=== PATIENT | male | born 1965 | race Asian ===

== ENCOUNTER 2017-01-30 19:48 | Emergency (ER) | payer BC ==
[~2017-01-30] VITALS: Ht 167.6 cm; Wt 74.8 kg
[~2017-01-30 19:48] MED LIST: BACTRIM-DS1 EA ORAL; INDOMETHACIN75 MG ORAL; NORCO 5-325 TA1 EACH ORAL
[2017-01-30 20:25] VITALS: BP 152/90
[2017-01-30] MEDS ORDERED: PredniSONE 20mg tab ONE (20:26)
[2017-01-30] MEDS ORDERED: HYDROCODON-ACE1 EA15 ORAL (20:29)
[2017-01-30] MEDS ORDERED: INDOMETHACIN50 MG PO (20:29)
[2017-01-30] MEDS ORDERED: PREDNISONE20 MG ORAL (20:29)
[2017-01-30 20:30] VITALS: BP 152/90
[2017-01-30] MEDS ORDERED: PredniSONE 20mg tab ORAL ONE (20:30)
--- NOTE | 2017-01-30 20:30 | Emergency Room Report ---
History of Present Illness General Chief Complaint: Pain Source: Patient Present Illness HPI Is a 51-year-old Vietnamese gentleman with history of gout. He's been complaining of right knee pain and swelling for the last 2 weeks. His Indocin helped some but still painful. No trauma. No fever or chills. No nausea vomiting. Pain is 7/10. Worse with walking. Similar to previous gouty attack. No other complaint. Allergies: Coded Allergies: AMOXICILLIN (Verified Allergy, Unknown, 06/05/16) Patient History Past Medical History: see triage record, old chart reviewed Past Surgical History: other Pertinent Family History: none Social History: Denies: smoking Immunizations: other Reviewed Nursing Documentation: PMH: Agreed, PSxH: Agreed Review of Systems Eye: Denies: blurred vision, eye pain ENT: Denies: ear pain, nose congestion, throat swelling Respiratory: Denies: cough, shortness of breath Cardiovascular: Denies: chest pain, palpitations Gastrointestinal: Denies: abdominal pain, diarrhea, nausea, vomiting Musculoskeletal: Reports: joint pain, Denies: back pain Skin: Denies: rash Neurological: Denies: headache, numbness Endocrine: Denies: increased thirst, increased urine Hematologic/Lymphatic: Denies: easy bruising All Other Systems: negative except mentioned in HPI Physical Exam Vital Signs Date Time Temp Pulse Resp B/P Pulse Ox O2 Delivery O2 Flow Rate FiO2 01/30/17 20:00 98.8 97 16 152/90 96 Room Air vitals with hypertension Sp02 EP Interpretation: reviewed, normal General Appearance: well appearing, no apparent distress, alert Head: normocephalic, atraumatic Eyes: bilateral eye EOMI, bilateral eye PERRL ENT: hearing grossly normal, normal pharynx Neck: full range of motion, supple, no meningismus Respiratory: chest non-tender, lungs clear, normal breath sounds Cardiovascular #1: regular rate, rhythm, no murmur Gastrointestinal: normal bowel sounds, non tender, no mass, no organomegaly, no bruit, non-distended Musculoskeletal: back normal, gait/station normal, normal range of motion, other - rt knee with mild edema and warmth. FROM. N[facility] Psychiatric: mood/affect normal Skin: warm/dry Medical Decision Making Diagnostic Impression: Primary Impression: Gout of right knee Qualified Codes: M10.9 - Gout, unspecified ER Course Patient presents with right knee pain. Most likely from gout. No evidence of any septic joint. No evidence of trauma. We'll discharge home. Last Vital Signs Date Time Temp Pulse Resp B/P Pulse Ox O2 Delivery O2 Flow Rate FiO2 01/30/17 20:00 98.8 97 16 152/90 96 Room Air Status: improved Disposition: HOME, SELF-CARE Condition: Stable Scripts Indomethacin (INDOMETHACIN) 50 Mg Capsule 50 MG PO TID, #30 CAP Prov: JAZ VELOZ M.D. 01/30/17 Prednisone* (PREDNISONE*) 20 Mg Tablet 40 MG ORAL DAILY, #8 TAB Prov: JAZ VELOZ M.D. 01/30/17 Hydrocodone/Acetaminophen 5-325* (HYDROCODONE/ACETAMINOPHEN 5-325*) 1 Each Tablet 1 TAB ORAL Q6H Y for For Pain, #20 TAB 0 Refills Prov: JAZ VELOZ M.D. 01/30/17 Additional Instructions: Followup with your Dr. in 7 days. Return if symptom worsen. JAZ VELOZ M.D. January 30, 2017 20:30
== END 2017-01-30 20:30 | disposition home or self-care (01) ==
LOC: EMR 19:55
DX: M10.9 Gout, unspecified (principal); Z88.8 Allergy status to other drugs, medicaments and biological substances
CPT/HCPCS: 99283

== ENCOUNTER 2017-04-23 19:31 | Emergency (ER) | payer BC ==
[~2017-04-23] VITALS: Ht 167.6 cm; Wt 74.8 kg
[~2017-04-23 19:31] MED LIST changes: +HYDROCODON-ACE1 EA15 ORAL; +INDOMETHACIN50 MG PO; +PREDNISONE20 MG ORAL
[2017-04-23 20:07] LABS: APPEARANCE,URINE SLIGHTLY CLOUDY; KETONES,URINE NEGATIVE (NEGATIVE); LEUKOCYTE ESTERASE ,URINE 1+ (NEGATIVE); NITRITE,URINE NEGATIVE (NEGATIVE); PH,URINE 7 (4.5-8.0); PROTEIN,URINE 2+ (NEGATIVE); UROBILINOGEN,URINE NORMAL MG/DL (0.0-1.0)
[2017-04-23 20:50] LABS: BACTERIA,URINE FEW /HPF
[2017-04-23 20:53] LABS: BASOPHILS % (AUTO) 0.9 % (0.0-2.0); EOSINOPHILS % (AUTO) 1.1 % (0.0-3.0); LYMPHOCYTES % (AUTO) 15.4 % (20.0-45.0); MEAN CORPUSCULAR HEMOGLOBIN 30.2 PG (27.0-31.0); MEAN CORPUSCULAR HGB CONC 34.8 G/DL (32.0-36.0); MEAN CORPUSCULAR VOLUME 87 FL (80-99); MEAN PLATELET VOLUME 5.9 FL (6.5-10.1); MONOCYTES % (AUTO) 8.7 % (1.0-10.0); NEUTROPHILS % (AUTO) 73.9 % (45.0-75.0); PLATELET COUNT 315 K/UL (150-450); RED BLOOD COUNT 5.06 M/UL (4.70-6.10); RED CELL DISTRIBUTION WIDTH 12.3 % (11.6-14.8); WHITE BLOOD COUNT 13.6 K/UL (4.8-10.8)
[2017-04-23 21:09] LABS: ALBUMIN/GLOBULIN RATIO 1.6 (1.0-2.7); ANION GAP 11 (5-15); CALCIUM 9.6 mg/dL (8.6-10.2); CARBON DIOXIDE 30 mEQ/L (20-30); CHLORIDE 101 mEQ/L (98-107); CREATININE 1.1 mg/dL (0.7-1.2); GLOMERULAR FILTRATION RATE > 60 mL/min (>60); HEMOLYSIS 24; POTASSIUM 3.9 mEQ/L (3.4-4.9); SODIUM 142 mEQ/L (135-145); TOTAL PROTEIN 7.8 g/dL (6.6-8.7)
[2017-04-23 21:20] LABS: ALANINE AMINOTRANSFERASE 5 U/L (3-41); ASPARTATE AMINO TRANSFERASE < 5 U/L (5-40)
[2017-04-23] MEDS ORDERED: NORCO 5-325 TA1 EAC1 ORAL (22:05)
[2017-04-23] MEDS ORDERED: CEPHALEXIN500 MG ORAL (22:05)
[2017-04-23 22:30] VITALS: BP 139/89
[2017-04-23 22:45] VITALS: BP 148/90
--- NOTE | 2017-04-24 11:53 | Emergency Room Report ---
History of Present Illness General Chief Complaint: Abdominal Pain Source: Patient Present Illness HPI The patient is a 51-year-old male presenting for Increased urinary frequency, dysuria, and left back pain. Symptoms began 2 days prior. He states that he has had both the UTI and kidney stone in the past. He also has a history of gout. Pain is a 5/10 intermittent sharp sensation from the left lower back to the left lower abdomen. He is also described as sharp pain in the penis while urinating which then resolved. He denies any penile discharge, testicular pain , nausea, vomiting, fever, chills, hematuria, rash Allergies: Coded Allergies: AMOXICILLIN (Verified Allergy, Unknown, 06/05/16) Patient History Past Medical History: see triage record Pertinent Family History: none Reviewed Nursing Documentation: PMH: Agreed, PSxH: Agreed Nursing Documentation-PMH Past Medical History: No History, Except For Review of Systems All Other Systems: negative except mentioned in HPI Physical Exam Vital Signs Date Time Temp Pulse Resp B/P Pulse Ox O2 Delivery O2 Flow Rate FiO2 04/23/17 19:42 97.9 100 16 148/90 99 Room Air Sp02 EP Interpretation: reviewed, normal General Appearance: no apparent distress, alert, GCS 15, non-toxic Head: normocephalic, atraumatic Eyes: bilateral eye PERRL, bilateral eye normal inspection ENT: hearing grossly normal, normal pharynx, no angioedema, normal voice Neck: full range of motion, supple/symm/no masses Respiratory: chest non-tender, lungs clear, normal breath sounds, speaking full sentences Cardiovascular #1: regular rate, rhythm, no edema Gastrointestinal: normal bowel sounds, non tender, soft, no mass, non-distended , no guarding, no rebound Genitourinary: normal inspection, no CVA tenderness Musculoskeletal: back normal, gait/station normal, normal range of motion, non- tender Neurologic: alert, oriented x3, responsive, motor strength/tone normal, sensory intact, speech normal Psychiatric: judgement/insight normal, memory normal, mood/affect normal, no suicidal/homicidal ideation Skin: normal color, no rash, warm/dry, well hydrated Medical Decision Making PA Attestation Dr. Dunham is my supervising physician. Patient management was discussed with my supervising physician Diagnostic Impression: Primary Impression: Renal calculus, bilateral Additional Impressions: Urinary tract infection Qualified Codes: N39.0 - Urinary tract infection, site not specified; R31.9 - Hematuria, unspecified Hematuria Qualified Codes: R31.9 - Hematuria, unspecified ER Course The patient is a 51-year-old male presenting for increased urinary frequency and flank pain. Differential diagnoses considered but not limited to: Urinary tract infection, pyelonephritis, pyelonephrosis, muscle strain, appendicitis,, and others Physical exam: Afebrile. No apparent distress Abdomen is soft and nontender. Normal bowel sounds. No CVA tenderness. Lungs are clear to auscultation bilaterally Skin is warm and dry. No discoloration Otherwise exam is unremarkable CBC shows leukocytosis, otherwise unremarkable CMP unremarkable Urinalysis shows 5+ occult blood with red blood cells and 1+ leukocyte Estrace The patient has declined CT of the abdomen as he states he has had 2 in the past and does not want anymore radiation Abdominal ultrasound shows cholelithiasis and nonobstructing kidney stones. No hydronephrosis The patient be placed on antibiotics and is given pain medications. He was informed of the results and needs to followup with his primary doctor. ER precautions given Labs Test 04/23/17 19:49 04/23/17 20:25 Urine Color Pale yellow Urine Appearance Slightly cloudy Urine pH 7 (4.5-8.0) Urine Specific [place] 1.010 (1.005-1.035) Urine Protein 2+ (NEGATIVE) Urine Glucose (UA) Negative (NEGATIVE) Urine Ketones Negative (NEGATIVE) Urine Occult Blood 5+ (NEGATIVE) Urine Nitrite Negative (NEGATIVE) Urine Bilirubin Negative (NEGATIVE) Urine Urobilinogen Normal MG/DL (0.0-1.0) Urine Leukocyte Esterase 1+ (NEGATIVE) Urine RBC 10-15 /HPF (0 - 0) Urine WBC 2-4 /HPF (0 - 0) Urine Squamous Epithelial Cells None /LPF (NONE/OCC) Urine Bacteria Few /HPF (NONE) White Blood Count 13.6 K/UL (4.8-10.8) Red Blood Count 5.06 M/UL (4.70-6.10) Hemoglobin 15.3 G/DL (14.2-18.0) Hematocrit 43.9 % (42.0-52.0) Mean Corpuscular Volume 87 FL (80-99) Mean Corpuscular Hemoglobin 30.2 PG (27.0-31.0) Mean Corpuscular Hemoglobin Concent 34.8 G/DL (32.0-36.0) Red Cell Distribution Width 12.3 % (11.6-14.8) Platelet Count 315 K/UL (150-450) Mean Platelet Volume 5.9 FL (6.5-10.1) Neutrophils (%) (Auto) 73.9 % (45.0-75.0) Lymphocytes (%) (Auto) 15.4 % (20.0-45.0) Monocytes (%) (Auto) 8.7 % (1.0-10.0) Eosinophils (%) (Auto) 1.1 % (0.0-3.0) Basophils (%) (Auto) 0.9 % (0.0-2.0) Sodium Level 142 mEQ/L (135-145) Potassium Level 3.9 mEQ/L (3.4-4.9) Chloride Level 101 mEQ/L (98-107) Carbon Dioxide Level 30 mEQ/L (20-30) Anion Gap 11 (5-15) Blood Urea Nitrogen 14 mg/dL (7-23) Creatinine 1.1 mg/dL (0.7-1.2) Estimat Glomerular Filtration Rate > 60 mL/min (>60) Glucose Level 126 mg/dL (74-106) Uric Acid 9.9 MG/DL (2.6-7.2) Calcium Level 9.6 mg/dL (8.6-10.2) Total Bilirubin 0.3 mg/dL (0.0-1.2) Aspartate Amino Transf (AST/SGOT) < 5 U/L (5-40) Alanine Aminotransferase (ALT/SGPT) 5 U/L (3-41) Alkaline Phosphatase 87 U/L (40-129) Total Protein 7.8 g/dL (6.6-8.7) Albumin 4.8 g/dL (3.5-5.2) Globulin 3.0 g/dL Albumin/Globulin Ratio 1.6 (1.0-2.7) Lab Results Impression CBC shows leukocytosis, otherwise unremarkable CMP unremarkable Urinalysis shows 5+ occult blood with red blood cells and 1+ leukocyte Estrace CT/MRI/US Diagnostic Results CT/MRI/US Diagnostic Results : Imaging Test Ordered: [facility] US Impression Cholelithiasis. nonobstructive stones within the kidneys. Fatty liver Last Vital Signs Date Time Temp Pulse Resp B/P Pulse Ox O2 Delivery O2 Flow Rate FiO2 04/23/17 22:45 97.9 16 148/90 99 Room Air 04/23/17 22:30 88 Status: improved Disposition: HOME, SELF-CARE Condition: Improved Scripts Cephalexin* (KEFLEX*) 500 Mg Capsule 500 MG ORAL EVERY 12 HOURS, #14 CAP 0 Refills Prov: BARRETT CAI.A. 04/23/17 Hydrocodone Bit/Acetaminophen 5-325* (NORCO 5-325 TABLET*) 1 Each Tablet 1 TAB ORAL Q6HR Y for For Pain, #10 TAB Prov: BARRETT CAI.A. 04/23/17 Patient Instructions: Kidney Stones, Hematuria, Adult Additional Instructions: I discussed my findings with the patient. All questions and concerns have been answered. Treatment and medication compliance have been addressed. I advised the patient that they need to follow up with PMD in 3-5 days. Return to ED if symptoms worsen, new symptoms arise, or if needed for any reason. Patient verbalized understanding of discharge instructions. The patient was told to return to the ED if he experiences increased pain, blood in urine, fever, or for any reason. BARRETT CAI Apr 24, 2017 11:53
--- NOTE | 2017-04-24 12:12 | Diagnostic Imaging Report ---
Indication:Abdominal pain Technique: Grayscale and duplex Doppler imaging of the abdomen performed. Comparison: None Findings: The liver is echogenic consistent with fatty infiltration. Main portal vein is patent by Doppler examination. Gallstone noted. No biliary ductal dilatation is identified. The pancreas and aorta are not seen. There is no hydronephrosis. There is evidence of nonobstructive stones within both kidneys. Impression: Cholelithiasis. nonobstructive stones within the kidneys. Fatty liver
== END 2017-04-23 22:46 | disposition home or self-care (01) ==
LOC: EMR 20:01
DX: N20.0 Calculus of kidney (principal); N39.0 Urinary tract infection, site not specified; R31.9 Hematuria, unspecified; Z88.8 Allergy status to other drugs, medicaments and biological substances
CPT/HCPCS: 36415; 76700; 80053; 81003; 84550; 85025; 96374

== ENCOUNTER 2017-11-08 14:50 | Emergency (ER) | payer BC ==
[~2017-11-08] VITALS: Ht 165.1 cm; Wt 72.6 kg
[~2017-11-08 14:50] MED LIST changes: +CEPHALEXIN500 MG ORAL; +NORCO 5-325 TA1 EAC1 ORAL
--- NOTE | 2017-11-08 15:43 | Emergency Room Report ---
History of Present Illness General Chief Complaint: Pain Source: Patient Present Illness HPI 52 yo male patient presents to ER complaining of left knee pain x1 day. Patient reports pain with walking; able to ambulate independently into ER. Reports he drove to ER. Patient reports hx of gout. Patient denies healthy diet. Patient reports taking Indomethacin for relief of symptoms; reports last dosage at 1200. Patient denies use of colchicine secondary to GI upset with use. Denies recent hx of trauma. Reports hx of ACL surgery. States gout usually has previously occurred in knees. Patient denies fever, chest pain, SOB. Allergies: Coded Allergies: AMOXICILLIN (Verified Allergy, Unknown, 06/05/16) Patient History Past Medical History: see triage record Reviewed Nursing Documentation: PMH: Agreed, PSxH: Agreed Nursing Documentation-PMH Past Medical History: No History, Except For Review of Systems All Other Systems: negative except mentioned in HPI Physical Exam Vital Signs Date Time Temp Pulse Resp B/P (MAP) Pulse Ox O2 Delivery O2 Flow Rate FiO2 11/08/17 14:54 97.6 109 16 151/88 94 Room Air 97.5 Sp02 EP Interpretation: reviewed, normal General Appearance: well appearing, no apparent distress, alert, GCS 15, non- toxic Head: normocephalic, atraumatic Eyes: bilateral eye normal inspection, bilateral eye PERRL, bilateral eye EOMI ENT: hearing grossly normal, normal pharynx, normal voice, uvula midline, moist mucus membranes Neck: normal inspection, full range of motion, no bony tend Respiratory: normal inspection, lungs clear, normal breath sounds, no accessory muscle use, no wheezing, speaking full sentences Cardiovascular #1: regular rate, rhythm, no edema Musculoskeletal: back normal, digits/nails normal, gait/station normal, normal range of motion - with pain, non-tender, no calf tenderness, swelling, other - right knee: mild edema, warmth Neurologic: alert, oriented x3, responsive, motor strength/tone normal, normal gait Psychiatric: mood/affect normal Skin: no rash Lymphatic: no adenopathy Medical Decision Making PA Attestation Dr. Montoya is my supervising Physician whom patient management has been discussed with. Diagnostic Impression: Primary Impression: Gout ER Course Pt. presents to the ED c/o right foot pain. Ddx considered but are not limited to gout, sprain, strain, contusion. No evidence of septic joint, no TTP. Vital signs: are WNL, pt. is afebrile ORDERS: An X-ray of the left knee was ordered, results show joint effusion, per the official radiology report. No fracture. Results discussed with patient. ED INTERVENTIONS: -Indomethacin Patient request crutches for walking. Provided patient with crutches. DISCHARGE: -Rx provided for Indomethacin for pain symptoms. At this time pt. is stable for d/c to home. Patient resting comfortably, in no acute distress, nontoxic appearing. Will provide printed patient care instructions, and any necessary prescriptions. Patient instructed to follow with primary care provider in 3 - 5 days and to discuss further gout treatment. Care plan and follow up instructions have been discussed with the patient prior to discharge. Take medications as directed. Patient questions asked and answered. Patient reports understanding and agreement to treatment plan. ER precautions given, patient instructed to return to ER immediately for any new or worsening of symptoms. Other X-Ray Diagnostic Results Other X-Ray Diagnostic Results : X-Ray ordered: left knee # of Views/Limited Vs Complete: 3 View Indication: Pain EP Interpretation: Yes PA Xray: Interpretation reviewed, by supervising MD, and agrees with findings. Interpretation: no dislocation, no fractures, other - joint effusion, s/p ACL repair Impression: Other - joint effusion PA Scribe Text Juan Jones PA-C Last Vital Signs Date Time Temp Pulse Resp B/P (MAP) Pulse Ox O2 Delivery O2 Flow Rate FiO2 11/08/17 14:54 97.6 109 16 151/88 94 Room Air 97.5 Disposition: HOME, SELF-CARE Condition: Stable Scripts Indomethacin (INDOMETHACIN) 25 Mg Capsule 25 MG PO TID for 7 Days, #21 CAP Prov: Nathan Jones 11/08/17 Patient Instructions: Gout, [id number] Additional Instructions: Followup with primary care provider in 3 -5 days. Take medications as directed. Patient questions asked and answered. ER precautions given, patient instructed to return to ER immediately for any new or worsening of symptoms. Nathan Jones Nov 08, 2017 15:43
[2017-11-08] MEDS ORDERED: INDOMETHACIN25 MG PO (15:55)
[2017-11-08] MEDS ORDERED: Indomethacin 25mg cap ORAL SCH (16:00)
[2017-11-08] MEDS ORDERED: Norco 5mg/325mg tab ORAL ONE (16:00)
--- NOTE | 2017-11-08 16:14 | Diagnostic Imaging Report ---
Indication: Pain 3 views of the left knee were obtained. Findings: There is distention of the suprapatellar pouch consistent with a joint effusion. There are tracts in the distal femur and proximal tibia consistent with previous ACL repair. The bones are osteopenic. No fracture or malalignment of the knee identified. IMPRESSION: Joint effusion. Status post ACL repair
[2017-11-08 16:49] VITALS: BP 154/83
== END 2017-11-08 16:49 | disposition home or self-care (01) ==
LOC: EMR 16:05
DX: M10.9 Gout, unspecified (principal); Z88.0 Allergy status to penicillin; M25.462 Effusion, left knee; Z98.890 Other specified postprocedural states
CPT/HCPCS: 99283